=== PATIENT | female | born 1970 | race Caucasian/White ===

== ENCOUNTER → 2018-09-27 | Outpatient (REF) | payer OTHER ==
[~2018-09-27] MED LIST: FLEXERIL10 MG PO; MOTRIN800 MG OR; NO HOME MEDS; PERCOCET 10/31 COMBO PO; PERCOCET1 TA3 OR
[2018-09-27 14:25] LABS: HEMATOCRIT 38.6 % (37.0-47.0); HEMOGLOBIN 12.2 g/dl (12.0-16.0); IMMATURE GRANULOCYTES 0.6 % (0.0-5.0); MEAN CELL VOLUME 79.1 fL CALC (80.0-100.0); MEAN CORPUSCULAR HGB CONC 31.6 g/L CALC (32.0-36.0); NEUT# 7.13 thou/uL (2.00-7.15); RED BLOOD COUNT 4.88 mill/uL (4.20-5.60); RED CELL DISTRI WIDTH 17.2 % (11.5-15.5)
[2018-09-27 14:54] LABS: ALKALINE PHOSPHATASE 82 u/l (38-126); ANION GAP 14 (6-22 (CALC)); BILIRUBIN, TOTAL 0.3 mg/dL (0.0-1.4); BUN 11 mg/dL (7-17); BUN/CREATININE RATIO 15 (12-20 (CALC)); CALCULATED LDLCHOLESTEROL 130 mg/dL (62-129 (CALC)); CARBON DIOXIDE 26 mmol/l (22-30); CHLORIDE 102 mmol/l (95-108); CHOLESTEROL HDL RATIO 4.2 (<4.4 (CALC)); CREATININE 0.7 mg/dL (0.5-1.0); GFR > 60 ML/MIN (>=60 (CALC)); GFR FOR AFR.AMER. > 60 ML/MIN (>=60 (CALC)); HDL CHOLESTEROL 52 mg/dL (>=40); POTASSIUM 3.1 mmol/l (3.5-5.1); SGOT/AST 14 u/l (14-36); SODIUM 139 mmol/l (137-146); TOTAL CHOLESTEROL 219 mg/dl (0-199); TOTAL PROTEIN 6.8 g/dL (6.3-8.2); TOTAL TRIGLYCERIDES 182 mg/dl (30-149); VLDL CHOLESTROL 36 mg/dl (1-41 (CALC))
[2018-09-27 15:23] LABS: TSH, 3RD GENERATION 1.52 uIU/mL (0.47 - 4.68)
== END | disposition home or self-care (01) | DRG 951 ==
LOC: LAB 14:04
PROVIDERS: ATTEND Family Medicine
DX: Z00.00 Encounter for general adult medical examination without abnormal findings (principal)

== ENCOUNTER 2022-12-01 08:43 | Day surgery (SDC) | payer OTHER ==
[~2022-12-01] VITALS: Ht 157.5 cm; Wt 86.2 kg
[2022-12-01] MEDS ORDERED: MORPHINE SUL15 M2 PO (09:48)
[2022-12-01] MEDS ORDERED: TRAMADOL HCL50 MG PO (09:48)
[2022-12-01 09:51] LABS: HCG SERUM/URINE (NEG/POS) NEGATIVE (NEGATIVE)
[2022-12-01 11:53] VITALS: BP 109/66
== END 2022-12-01 11:48 | disposition home or self-care (01) | DRG 93 ==
LOC: ORM 08:43
PROVIDERS: ATTEND Physical Medicine & Rehabilitation Pain Medicine
DX: G89.4 Chronic pain syndrome (principal); M51.36 Other intervertebral disc degeneration, lumbar region; M62.838 Other muscle spasm; M47.816 Spondylosis without myelopathy or radiculopathy, lumbar region

== ENCOUNTER 2022-12-15 07:05 | Day surgery (SDC) | payer OTHER ==
[~2022-12-15] VITALS: Ht 157.5 cm; Wt 86.6 kg
[~2022-12-15 07:05] MED LIST changes: +MORPHINE SUL15 M2 PO; +TRAMADOL HCL50 MG PO
[2022-12-15 09:25] VITALS: BP 116/65
== END 2022-12-15 09:10 | disposition home or self-care (01) | DRG 93 ==
LOC: ORM 07:05
PROVIDERS: ATTEND Physical Medicine & Rehabilitation Pain Medicine
DX: G89.4 Chronic pain syndrome (principal); M51.36 Other intervertebral disc degeneration, lumbar region; M62.838 Other muscle spasm; M47.816 Spondylosis without myelopathy or radiculopathy, lumbar region

== ENCOUNTER 2023-01-26 07:39 | Day surgery (SDC) | payer OTHER ==
[~2023-01-26] VITALS: Ht 157.5 cm; Wt 95.3 kg
[2023-01-26 10:11] VITALS: BP 108/68
== END 2023-01-26 09:27 | disposition home or self-care (01) | DRG 93 ==
LOC: ORM 07:39
PROVIDERS: ATTEND Physical Medicine & Rehabilitation Pain Medicine
DX: G89.4 Chronic pain syndrome (principal); M51.36 Other intervertebral disc degeneration, lumbar region; M62.838 Other muscle spasm; M47.816 Spondylosis without myelopathy or radiculopathy, lumbar region

== ENCOUNTER 2023-02-09 07:47 | Day surgery (SDC) | payer OTHER ==
[~2023-02-09] VITALS: Ht 157.5 cm; Wt 95.3 kg
[2023-02-09 10:01] VITALS: BP 114/76
== END 2023-02-09 09:40 | disposition home or self-care (01) | DRG 93 ==
LOC: ORM 07:47
PROVIDERS: ATTEND Physical Medicine & Rehabilitation Pain Medicine
DX: G89.4 Chronic pain syndrome (principal); M47.816 Spondylosis without myelopathy or radiculopathy, lumbar region